=== PATIENT | male | born 1980 | race African-American/Black ===

== ENCOUNTER 2016-04-14 09:05 | Emergency (ER) | payer OTHER ==
[~2016-04-14] VITALS: Ht 167.6 cm; Wt 86.2 kg
[2016-04-14 10:02] LABS: BASOPHIL COUNT 0.1 K/uL (0-0.1); EOSINOPHIL (%) 0.4 % (0-5); HEMATOCRIT 50.5 % (38.0-50.0); IMMATURE GRANULOCYTE (%) 0.1 % (0.0-0.7); IMMATURE GRANULOCYTE COUNT 0.1 K/uL; LYMPHOCYTE COUNT 1.9 K/uL (1.0-2.8); MCH 28.1 PG (29.0-34.0); MCHC 33.7 G/DL (30.0-36.0); MCV 83.6 FL (86-99); MEAN PLAT.VOLUME 10.5 uM^3 (9.0-12.4); MONOCYTE (%) 5.9 % (3-12); MONOCYTE COUNT 0.4 K/uL (0-0.8); NEUTROPHIL (%) 66.1 % (45-76); NEUTROPHIL COUNT 4.6 K/uL (1.8-6.4); PLATELET COUNT 186 K/uL (156-360); RBC DIS.WIDTH-CV 14.6 % (11.8-14.6); RBC DIS.WIDTH-SD 44.5 % (39-53); RED BLOOD COUNT 6.04 M/uL (4.00-5.50)
[2016-04-14 10:30] LABS: CHLORIDE 104 mEq/L (99-109); POTASSIUM 4.1 mEq/L (3.7-5.4); SODIUM 141 mEq/L (136-147)
[2016-04-14 10:32] LABS: GLUCOSE 104 mg/dL (70-99)
[2016-04-14 10:33] LABS: ANION GAP 10 MEQ/L (2-14)
[2016-04-14 10:36] LABS: GFR ESTIMATE (CALCULATED) > 59 mL/min/; UREA NITROGEN (BUN) 12 mg/dL (9-23)
[2016-04-14] MEDS ORDERED: PRINIVIL10 MG PO (11:23)
[2016-04-14] MEDS ORDERED: TYLENOL WITH C1 EACH PO (11:26)
[2016-04-14 11:41] VITALS: BP 136/109
== END 2016-04-14 11:43 | disposition home or self-care (01) ==
LOC: EME 09:05
PROVIDERS: Emergency Medicine
DX: M25.512 Pain in left shoulder (principal); M79.1 Myalgia; I10 Essential (primary) hypertension; Z95.2 Presence of prosthetic heart valve
CPT/HCPCS: 71020; 73030; 80048; 85025; 93005; 99281; 99284